=== PATIENT | female | born 1960 | race Caucasian/White ===

== ENCOUNTER 2018-12-22 21:19 | Emergency (ER) | payer OTHER ==
[2018-12-22 21:28] VITALS: TEMP 98.9
[2018-12-22] MEDS ORDERED: SODIUM CHLORIDE 0.9% 1,000 ML IV STA (22:16)
[2018-12-22] MEDS ORDERED: MORPHINE SULFATE 4 MG/ML SYRINGE IV STA (22:16)
[2018-12-22] MEDS ORDERED: ONDANSETRON 4 MG/2 ML VIAL IVP STA (22:16)
[2018-12-22] MEDS ORDERED: IPRATROPIUM-ALBUTEROL 3 ML NEB INHALATION STA (22:19)
[2018-12-22 22:31] LABS: Basophils # (A) 0.1 k/uL (0-0.2); Basophils % (A) 1 %; Eosinophils # (A) 0.2 k/uL (0-0.7); Eosinophils % (A) 2 %; HCT 41.5 % (34.0-46.0); HGB 13.5 gm/dL (11.4-16.0); Lymphocytes # (A) 2.5 k/uL (1.0-4.8); Lymphocytes % (A) 24 %; MCH 29.7 pg (25.0-35.0); MCHC 32.6 g/dL (31.0-37.0); MCV 91.2 fL (80.0-100.0); Mean Platelet Volume 6.6; Monocytes # (A) 0.4 k/uL (0-1.0); Monocytes % (A) 4 %; Neutrophils # (A) 7.1 k/uL (1.3-7.7); Neutrophils % (A) 68 %; Platelet Count 249 k/uL (150-450); RBC 4.56 m/uL (3.80-5.40); RDW 14.3 % (11.5-15.5); WBC 10.4 k/uL (3.8-10.6)
[2018-12-22 22:38] LABS: ALT 40 U/L (9-52); AST 27 U/L (14-36); Albumin 4.1 g/dL (3.5-5.0); Alkaline Phosphatase 172 U/L (38-126); Amylase 55 U/L (30-110); Anion Gap 6 mmol/L; Blood Urea Nitrogen 11 mg/dL (7-17); Calcium 9.9 mg/dL (8.4-10.2); Carbon Dioxide 25 mmol/L (22-30); Chloride 100 mmol/L (98-107); Lipase 169 U/L (23-300); Potassium 4.6 mmol/L (3.5-5.1); Sodium 131 mmol/L (137-145); Total Bilirubin 0.6 mg/dL (0.2-1.3); Total Protein 6.8 g/dL (6.3-8.2)
--- NOTE | 2018-12-22 22:56 | XR ---
EXAMINATION TYPE: XR chest 2V DATE OF EXAM: 12/22/2018 COMPARISON: NONE HISTORY: Nausea and vomiting TECHNIQUE: Frontal and lateral views of the chest are obtained. FINDINGS: Heart and mediastinum are normal. Lungs are clear. Diaphragm is normal. There is thoracic dextroscoliosis. There are chest leads. IMPRESSION: No active cardiopulmonary disease. Normal heart.
--- NOTE | 2018-12-22 23:01 | XR ---
EXAMINATION TYPE: XR KUB DATE OF EXAM: 12/22/2018 COMPARISON: NONE HISTORY: Nausea and vomiting TECHNIQUE: 2 views FINDINGS: 2 views upright show no sign of intestinal obstruction or pneumoperitoneum. Fecal pattern i s normal. There is mild thoracolumbar levoscoliosis. There is stent in the mid abdomen. Lung bases ar e clear. There are no pathologic calcifications over the kidneys. IMPRESSION: Nonacute abdomen.
[2018-12-22 23:23] LABS: Glucose 517 mg/dL (74-99)
[2018-12-22 23:31] LABS: Glucose,Whole Blood 411 mg/dL (75-99)
[2018-12-23] MEDS ORDERED: INSULIN REGULAR 100 UNIT/ML VIAL SQ ONE (00:09)
[2018-12-23] MEDS ORDERED: INSULIN REGULAR 100 UNIT/ML VIAL IV ONE ×2 (00:09→01:58)
[2018-12-23] MEDS ORDERED: SODIUM CHLORIDE 0.9% 1,000 ML IV ONE (01:58)
--- NOTE | 2018-12-23 02:03 | ED ---
Abdominal Pain HPI - General Chief Complaint: Abdominal Pain Stated Complaint: CHEST PAIN Time Seen by Provider: 12/22/18 21:42 Source: patient Mode of arrival: ambulatory Limitations: no limitations - History of Present Illness Initial Comments: 58-year-old female patient with past medical history significant for CAD, diabetes mellitus, hypertension, with recent placement of a stent to her, bile duct presents to the emergency department today for evaluation of upper abdominal pain, nausea, vomiting, and diarrhea. Patient states she's been having symptoms for the last 4-5 days. States that she did call her surgeon at [facility] was concern for possible infection to the stent. Patient denies any fevers or chills. She denies any chest pain or shortness of breath. Denies any dizziness or weakness. Patient states she's been unable to eat or drink anything in the last several days. States she has also been out of her insulin for the last 3 days. She denies any hematuria, dysuria, urinary frequency, urinary urgency. Patient denies any recent rash, chest pain, numbness, tingling , dizziness, weakness, headache, visual changes, or any other complaints. - Related Data Home Medications Medication Instructions Recorded Confirmed traZODone HCL [Desyrel] 200 mg PO HS 09/15/16 12/22/18 ALPRAZolam [Xanax] 1 mg PO HS PRN 12/22/18 12/22/18 Levothyroxine Sodium [Synthroid] 75 mcg PO DAILY 12/22/18 12/22/18 Lisinopril [Zestril] 5 mg PO DAILY 12/22/18 12/22/18 Metoprolol Tartrate [Lopressor] 25 mg PO BID 12/22/18 12/22/18 rOPINIRole HCL [Requip] 4 mg PO HS 12/22/18 12/22/18 Allergies Allergy/AdvReac Type Severity Reaction Status Date / Time ketorolac tromethamine Allergy Rash/Hives Verified 12/22/18 22:21 [From Toradol] tramadol Allergy Rash/Hives Verified 12/22/18 22:21 Review of Systems ROS Statement: Those systems with pertinent positive or pertinent negative responses have been documented in the HPI. ROS Other: All systems not noted in ROS Statement are negative. Past Medical History Past Medical History: Coronary Artery Disease (CAD), Diabetes Mellitus, Hypertension Additional Past Medical History / Comment(s): hx alcoholism- last drink 9 mos. ago. History of Any Multi-Drug Resistant Organisms: None Reported Past Surgical History: Orthopedic Surgery Additional Past Surgical History / Comment(s): pancreatic stent. plates in bilateral feet. Past Psychological History: Anxiety, Depression Smoking Status: Current every day smoker Past Alcohol Use History: Abuse Past Drug Use History: None Reported General Exam Limitations: no limitations General appearance: alert, in no apparent distress, other (This is a well- developed, well-nourished adult female patient in mild distress related to pain. Vital signs upon presentation are temperature 98.9F, pulse 93, respirations 16, blood pressure 138/96, pulse ox 93% on room air.) Eye exam: Present: normal appearance, PERRL, EOMI. Absent: scleral icterus, conjunctival injection, periorbital swelling ENT exam: Present: normal exam, normal oropharynx, mucous membranes moist Respiratory exam: Present: normal lung sounds bilaterally. Absent: respiratory distress, wheezes, rales, rhonchi, stridor Cardiovascular Exam: Present: regular rate, normal rhythm, normal heart sounds. Absent: systolic murmur, diastolic murmur, rubs, gallop, clicks GI/Abdominal exam: Present: soft, tenderness (Midepigastric tenderness), normal bowel sounds. Absent: distended, guarding, rebound, rigid Neurological exam: Present: alert, oriented X3, CN II-XII intact Psychiatric exam: Present: normal affect, normal mood Skin exam: Present: warm, dry, intact, normal color. Absent: rash Course Vital Signs 12/22/18 12/22/18 12/22/18 21:21 21:22 21:30 Temperature 98.9 F Pulse Rate 93 94 83 Respiratory 16 15 12 Rate Blood Pressure 138/96 138/96 138/96 O2 Sat by Pulse 93 L 93 L 95 Oximetry 12/22/18 12/22/18 12/22/18 22:00 22:30 22:44 Temperature Pulse Rate 71 69 61 Respiratory 14 13 Rate Blood Pressure 122/81 124/86 O2 Sat by Pulse 97 95 Oximetry 12/22/18 12/22/18 12/22/18 22:51 23:00 23:28 Temperature Pulse Rate 63 97 72 Respiratory 35 H 22 Rate Blood Pressure 96/71 118/86 O2 Sat by Pulse 97 Oximetry 12/22/18 12/23/18 12/23/18 23:30 00:00 00:30 Temperature Pulse Rate 85 75 71 Respiratory 24 24 16 Rate Blood Pressure 118/86 O2 Sat by Pulse Oximetry 12/23/18 12/23/18 12/23/18 01:00 01:30 02:39 Temperature Pulse Rate 80 74 86 Respiratory 17 17 16 Rate Blood Pressure 103/69 O2 Sat by Pulse 96 Oximetry Medical Decision Making - Medical Decision Making 58 year-old female patient presented to the emergency department today for evaluation of upper abdominal pain, nausea, vomiting, diarrhea. Physical examination did reveal some mild midepigastric abdominal tenderness. Patient did recently have a exchange of her common bile duct stent. Labs reviewed and did reveal hyperglycemia with a blood sugar of 517. Patient's acetone positive however anion gap was 6 and CO2 was 25. We did give IV fluids and insulin here in the emergency department. We did repeat CMP and acetone, sugar has improved. Anion gap, Axid remained stable. She has not acetone negative. Upon reevaluation she is resting comfortably. She will be discharged home to follow-up with her primary care physician and her well services operator for further evaluation. Return parameters were discussed in detail. She verbalizes understanding and agrees with this plan. - Lab Data Result diagrams: 12/22/18 22:15 12/23/18 04:45 Lab Results 12/22/18 12/22/18 12/22/18 Range/Units 22:15 22:15 22:15 WBC 10.4 (3.8-10.6) k/uL RBC 4.56 (3.80-5.40) m/uL Hgb 13.5 (11.4-16.0) gm/dL Hct 41.5 (34.0-46.0) % MCV 91.2 (80.0-100.0) fL MCH 29.7 (25.0-35.0) pg MCHC 32.6 (31.0-37.0) g/dL RDW 14.3 (11.5-15.5) % Plt Count 249 (150-450) k/uL Neutrophils % 68 % Lymphocytes % 24 % Monocytes % 4 % Eosinophils % 2 % Basophils % 1 % Neutrophils # 7.1 (1.3-7.7) k/uL Lymphocytes # 2.5 (1.0-4.8) k/uL Monocytes # 0.4 (0-1.0) k/uL Eosinophils # 0.2 (0-0.7) k/uL Basophils # 0.1 (0-0.2) k/uL Sodium 131 L (137-145) mmol/L Potassium 4.6 (3.5-5.1) mmol/L Chloride 100 (98-107) mmol/L Carbon Dioxide 25 (22-30) mmol/L Anion Gap 6 mmol/L BUN 11 (7-17) mg/dL Creatinine 0.37 L (0.52-1.04) mg/dL Est GFR (CKD-EPI)AfAm >90 (>60 ml/min/1.73 sqM) Est GFR (CKD-EPI)NonAf >90 (>60 ml/min/1.73 sqM) Glucose 517 H* (74-99) mg/dL POC Glucose (mg/dL) (75-99) mg/dL POC Glu [employer] Technical Officer ID Calcium 9.9 (8.4-10.2) mg/dL Total Bilirubin 0.6 (0.2-1.3) mg/dL AST 27 (14-36) U/L ALT 40 (9-52) U/L Alkaline Phosphatase 172 H (38-126) U/L Total Protein 6.8 (6.3-8.2) g/dL Albumin 4.1 (3.5-5.0) g/dL Amylase 55 (30-110) U/L Lipase 169 (23-300) U/L Urine Color Urine Appearance (Clear) Urine pH (5.0-8.0) Ur Specific [place] (1.001-1.035) Urine Protein (Negative) Urine Glucose (UA) (Negative) Urine Ketones (Negative) Urine Blood (Negative) Urine Nitrite (Negative) Urine Bilirubin (Negative) Urine Urobilinogen (<2.0) mg/dL Ur Leukocyte Esterase (Negative) Acetone, Qual Positive (Negative) 12/22/18 12/23/18 12/23/18 Range/Units 23:28 01:55 03:44 WBC (3.8-10.6) k/uL RBC (3.80-5.40) m/uL Hgb (11.4-16.0) gm/dL Hct (34.0-46.0) % MCV (80.0-100.0) fL MCH (25.0-35.0) pg MCHC (31.0-37.0) g/dL RDW (11.5-15.5) % Plt Count (150-450) k/uL Neutrophils % % Lymphocytes % % Monocytes % % Eosinophils % % Basophils % % Neutrophils # (1.3-7.7) k/uL Lymphocytes # (1.0-4.8) k/uL Monocytes # (0-1.0) k/uL Eosinophils # (0-0.7) k/uL Basophils # (0-0.2) k/uL Sodium (137-145) mmol/L Potassium (3.5-5.1) mmol/L Chloride (98-107) mmol/L Carbon Dioxide (22-30) mmol/L Anion Gap mmol/L BUN (7-17) mg/dL Creatinine (0.52-1.04) mg/dL Est GFR (CKD-EPI)AfAm (>60 ml/min/1.73 sqM) Est GFR (CKD-EPI)NonAf (>60 ml/min/1.73 sqM) Glucose (74-99) mg/dL POC Glucose (mg/dL) 411 H 328 H (75-99) mg/dL POC Glu [employer] Technical Officer ID Lowell Sarmiento Taylor Calcium (8.4-10.2) mg/dL Total Bilirubin (0.2-1.3) mg/dL AST (14-36) U/L ALT (9-52) U/L Alkaline Phosphatase (38-126) U/L Total Protein (6.3-8.2) g/dL Albumin (3.5-5.0) g/dL Amylase (30-110) U/L Lipase (23-300) U/L Urine Color Light Yellow Urine Appearance Clear (Clear) Urine pH 6.0 (5.0-8.0) Ur Specific [place] 1.033 (1.001-1.035) Urine Protein Negative (Negative) Urine Glucose (UA) 4+ H (Negative) Urine Ketones Negative (Negative) Urine Blood Negative (Negative) Urine Nitrite Negative (Negative) Urine Bilirubin Negative (Negative) Urine Urobilinogen <2.0 (<2.0) mg/dL Ur Leukocyte Esterase Negative (Negative) Acetone, Qual (Negative) 12/23/18 12/23/18 Range/Units 04:02 04:45 WBC (3.8-10.6) k/uL RBC (3.80-5.40) m/uL Hgb (11.4-16.0) gm/dL Hct (34.0-46.0) % MCV (80.0-100.0) fL MCH (25.0-35.0) pg MCHC (31.0-37.0) g/dL RDW (11.5-15.5) % Plt Count (150-450) k/uL Neutrophils % % Lymphocytes % % Monocytes % % Eosinophils % % Basophils % % Neutrophils # (1.3-7.7) k/uL Lymphocytes # (1.0-4.8) k/uL Monocytes # (0-1.0) k/uL Eosinophils # (0-0.7) k/uL Basophils # (0-0.2) k/uL Sodium 138 (137-145) mmol/L Potassium 3.3 L (3.5-5.1) mmol/L Chloride 110 H (98-107) mmol/L Carbon Dioxide 24 (22-30) mmol/L Anion Gap 4 mmol/L BUN 10 (7-17) mg/dL Creatinine 0.41 L (0.52-1.04) mg/dL Est GFR (CKD-EPI)AfAm >90 (>60 ml/min/1.73 sqM) Est GFR (CKD-EPI)NonAf >90 (>60 ml/min/1.73 sqM) Glucose 147 H (74-99) mg/dL POC Glucose (mg/dL) 182 H (75-99) mg/dL POC Glu [employer] Technical Officer ID Marii Johnson Calcium 8.9 (8.4-10.2) mg/dL Total Bilirubin 0.4 (0.2-1.3) mg/dL AST 17 (14-36) U/L ALT 41 (9-52) U/L Alkaline Phosphatase 120 (38-126) U/L Total Protein 5.8 L (6.3-8.2) g/dL Albumin 3.3 L (3.5-5.0) g/dL Amylase (30-110) U/L Lipase (23-300) U/L Urine Color Urine Appearance (Clear) Urine pH (5.0-8.0) Ur Specific [place] (1.001-1.035) Urine Protein (Negative) Urine Glucose (UA) (Negative) Urine Ketones (Negative) Urine Blood (Negative) Urine Nitrite (Negative) Urine Bilirubin (Negative) Urine Urobilinogen (<2.0) mg/dL Ur Leukocyte Esterase (Negative) Acetone, Qual Negative (Negative) - EKG Data -: EKG Interpreted by Me EKG Comments: EKG obtained at 2125 shows normal sinus rhythm with ventricular rate of 87, OR interval 164, QRS duration 94, QT 372, QTc 447. No evidence of ST elevation or depression. - Radiology Data Radiology results: report reviewed, image reviewed Two-view x-ray of the chest is obtained. Heart mediastinum are normal. Lungs are clear. Diaphragm is normal. There is thoracic dextroscoliosis. There are chest leads. Impression by Dr. Stark shows no active cardiopulmonary disease. Normal heart. KUB x-ray of the abdomen is obtained. Report was reviewed in its entirety. Impression by Dr. Stark shows nonacute abdomen. Disposition Clinical Impression: Abdominal pain, Hyperglycemia Disposition: HOME SELF-CARE Condition: Good Instructions (If sedation given, give patient instructions): Abdominal Pain (ED ), Diabetic Hyperglycemia (ED) Additional Instructions: Contact your physician to obtain your insulin. Follow-up with your well services operator for further evaluation as soon as possible. Return to the emergency department immediately for any new, worsening, or concerning symptoms. Is patient prescribed a controlled substance at d/c from ED?: No Referrals: Nonstaff,Physician [Primary Care Provider] - 1-2 days Time of Disposition: 05:19
[2018-12-23 02:40] VITALS: RESP 16
[2018-12-23 03:13] LABS: Glucose,Whole Blood 328 mg/dL (75-99)
[2018-12-23 04:45] LABS: Glucose,Whole Blood 182 mg/dL (75-99)
[2018-12-23 04:46] LABS: Appearance,Urine Clear (Clear); Bilirubin,Urine Negative (Negative); Blood,Urine Negative (Negative); Color,Urine Light Yellow; Glucose,Urine (UA) 4+ (Negative); Ketones,Urine Negative (Negative); Leukocyte Esterase,Urine Negative (Negative); Nitrite,Urine Negative (Negative); Protein,Urine Negative (Negative); Specific Gravity,Urine 1.033 (1.001-1.035); Urobilinogen,Urine <2.0 mg/dL (<2.0)
[2018-12-23 05:05] LABS: ALT 41 U/L (9-52); AST 17 U/L (14-36); Albumin 3.3 g/dL (3.5-5.0); Alkaline Phosphatase 120 U/L (38-126); Anion Gap 4 mmol/L; Blood Urea Nitrogen 10 mg/dL (7-17); Calcium 8.9 mg/dL (8.4-10.2); Carbon Dioxide 24 mmol/L (22-30); Chloride 110 mmol/L (98-107); Glucose 147 mg/dL (74-99); Potassium 3.3 mmol/L (3.5-5.1); Sodium 138 mmol/L (137-145); Total Bilirubin 0.4 mg/dL (0.2-1.3); Total Protein 5.8 g/dL (6.3-8.2)
[2018-12-23] MEDS ORDERED: MORPHINE SULFATE 4 MG/ML SYRINGE IM STA (05:18)
[2018-12-23] MEDS ORDERED: POTASSIUM CHLORIDE ER 20 MEQ TAB.ER PO STA (05:18)
[2018-12-23 05:36] VITALS: BP 96/64; PULSE 81
== END 2018-12-23 05:43 | disposition home or self-care (01) ==
LOC: EC 21:19
DX: E11.65 Type 2 diabetes mellitus with hyperglycemia (principal); R10.10 Upper abdominal pain, unspecified; R19.7 Diarrhea, unspecified; I10 Essential (primary) hypertension; I25.10 Atherosclerotic heart disease of native coronary artery without angina pectoris; F32.9 Major depressive disorder, single episode, unspecified; F41.9 Anxiety disorder, unspecified; F17.200 Nicotine dependence, unspecified, uncomplicated; Z88.5 Allergy status to narcotic agent; Z88.6 Allergy status to analgesic agent; Z79.890 Hormone replacement therapy; Z79.899 Other long term (current) drug therapy; Z96.89 Presence of other specified functional implants
CPT/HCPCS: 36415 ×2; 94640; 80053 ×2; 82150; 82009 ×2; 83690; 85025; 81003; 71046; 74018; 99284; 96374; 96375; 96361 ×7; 96372; J2270 ×2; J2405

== ENCOUNTER 2019-01-29 12:39 | Emergency (ER) | payer OTHER ==
[2019-01-29 13:02] VITALS: RESP 18; TEMP 97.5
--- NOTE | 2019-01-29 13:15 | ED ---
URI HPI - General Chief Complaint: Upper Respiratory Infection Stated Complaint: Body aches, congestion Time Seen by Provider: 01/29/19 13:10 Source: patient Mode of arrival: ambulatory Limitations: no limitations - History of Present Illness Initial Comments: 59-year-old female with past medical history of diabetes, thyroid disorder presenting today for multiple complaints. Patient states that she has had congestion and cough. She denies increased sputum production. Patient states she is a smoker. In addition patient states she has thrush, she states she has had this in the past, denies HIV. Patient denies any cancer or immunotherapy. Patient states that she has not been taking her diabetes medication including insulin because she has not had a primary care provider over the past month. Patient states she has had increased frequency of urination. Patient denies fever, chills night sweats headache, neck stiffness, chest pain, dyspnea, dyspnea on exertion, wheeze. She states is all upper respiratory with mostly nasal congestion. Patient denies any hemoptysis. Patient states her throat is sore, she feels this is due to the thrush. Patient denies any ear pain. Patient denies any dysuria. Patient states she would like her anxiety med as well as all of her other medications as she has not had them in a month. Remaining review of systems negative upon arrival patient appears well with no other complaints. Patient appears nontoxic. Patient denies any recent back pain, abdominal pain, nausea or vomiting, numbness or tingling, dysuria or hematuria, constipation or diarrhea, headaches or visual changes, or any other complaints. - Related Data Home Medications Medication Instructions Recorded Confirmed traZODone HCL [Desyrel] 200 mg PO HS 09/15/16 01/29/19 Levothyroxine Sodium [Synthroid] 75 mcg PO DAILY 12/22/18 01/29/19 rOPINIRole HCL [Requip] 4 mg PO HS 12/22/18 01/29/19 ALPRAZolam [Xanax] 0.5 mg PO Q6HR PRN 01/29/19 01/29/19 INSULIN LISPRO (humaLOG) [humaLOG] 4 unit SQ TID 01/29/19 01/29/19 Insulin Detemir (Levemir) [Levemir] 20 units SQ DAILY 01/29/19 01/29/19 metFORMIN HCL [Glucophage] 500 mg PO DAILY 01/29/19 01/29/19 Previous Rx's Medication Instructions Recorded Albuterol Inhaler [Ventolin Hfa 1 - 2 puff INHALATION RT-Q6H PRN 01/29/19 Inhaler] 14 Days #1 inhaler Azithromycin [Zithromax Z-pack] 0 mg PO DIRECTED #6 tab 01/29/19 INSULIN LISPRO (HumaLOG) [HumaLOG] 4 units SQ ACHS 14 Days #2 vial 01/29/19 Levothyroxine Sodium [Euthyrox] 75 mcg PO DAILY 14 Days #14 tablet 01/29/19 Nystatin 100,000 Unit/ml Susp 5 ml PO QID 14 Days #1 bottle 01/29/19 [Mycostatin Oral Susp] metFORMIN HCL 500 mg PO DAILY 14 Days #14 tablet 01/29/19 Allergies Allergy/AdvReac Type Severity Reaction Status Date / Time ketorolac tromethamine Allergy Rash/Hives Verified 01/29/19 16:25 [From Toradol] tramadol Allergy Rash/Hives Verified 01/29/19 16:25 Review of Systems ROS Statement: Those systems with pertinent positive or pertinent negative responses have been documented in the HPI. ROS Other: All systems not noted in ROS Statement are negative. Past Medical History Past Medical History: Coronary Artery Disease (CAD), Diabetes Mellitus, Hypertension Additional Past Medical History / Comment(s): hx alcoholism- last drink 9 mos. ago. History of Any Multi-Drug Resistant Organisms: None Reported Past Surgical History: Hysterectomy, Orthopedic Surgery Additional Past Surgical History / Comment(s): pancreatic stent. plates in bilateral feet. Past Psychological History: Anxiety, Depression Smoking Status: Current every day smoker Past Alcohol Use History: None Reported Past Drug Use History: None Reported General Exam - General Exam Comments Initial Comments: General: The patient is awake and alert, in no distress, and does not appear acutely ill. Eye: Pupils are equal, round and reactive to light, extra-ocular movements are intact. No nystagmus. There is normal conjunctiva bilaterally. No signs of icterus. Ears, nose, mouth and throat: There are moist mucous membranes and no oral lesions. Nasal congestion. Oropharynx revealed white plaque, there is white plaques on tongue. Uvula midline. No anterior cervical lymphadenopathy. Tympanic membrane and external auditory canals within normal limits. Neck: The neck is supple, there is no tenderness or JVD. Cardiovascular: There is a regular rate and rhythm. No murmur, rub or gallop is appreciated. Respiratory: Lungs are clear to auscultation, respirations are non-labored, breath sounds are equal. No wheezes, stridor, rales. Mild rhonchi. No retraction or abdominal breathing. Gastrointestinal: Soft, non-distended, non-tender abdomen without masses or organomegaly noted. There is no rebound or guarding present. No CVA tenderness. Bowel sounds are unremarkable. Musculoskeletal: Normal ROM, no tenderness. Strength 5/5. Sensation intact. Radial pulses equal bilaterally 2+. Neurological: A&O x 3. CN II-XII intact, There are no obvious motor or sensory deficits. Coordination appears grossly intact. Speech is normal. Skin: Skin is warm and dry and no rashes or lesions are noted. Psychiatric: Cooperative, appropriate mood & affect, normal judgment. Limitations: no limitations Course Vital Signs 01/29/19 01/29/19 01/29/19 12:58 14:05 14:14 Temperature 97.5 F L Pulse Rate 86 72 80 Respiratory 18 Rate Blood Pressure 134/99 O2 Sat by Pulse 96 Oximetry 01/29/19 01/29/19 15:45 16:30 Temperature Pulse Rate 77 78 Respiratory 18 18 Rate Blood Pressure 109/75 96/67 O2 Sat by Pulse 92 L 95 Oximetry Medical Decision Making - Medical Decision Making 59-year-old female presents today for chief complaint of upper respiratory symptoms and increased urgency as well as medication refill. Patient blood glucose and it can elevated upon arrival. Patient given IV fluids as well as IV insulin. Improvement of blood glucose. Patient had no acetone or ketones in urine. No evidence of DKA anion gap within acceptable limits. Patient given refill for Humalog. Patient's chest x-ray revealed no acute abnormality. Patient given DuoNeb treatment as well as prescription for azithromycin given COPD history. Patient attempting to leave the emergency department prior to discharge. States she would like to go home, attempting to leave ER. Patient was given a prescription to treat thrush, as well as her thyroid medication. She discussed the case attending provider Dr. Long we feel patient is stable for discharge with outpatient follow-up. I did give patient information for a free & reduced cost clinic in the [place] area so she can receive outpatient man agement of chronic disease. Patient is agreeable to this plan and discharged. Patient aware of return parameters. Patient denies questions at this time. Patient was educated on smoking cessation. - Lab Data Result diagrams: 01/29/19 14:25 01/29/19 14:25 Lab Results 01/29/19 01/29/19 01/29/19 Range/Units 13:35 14:25 14:25 WBC 12.4 H (3.8-10.6) k/uL RBC 5.48 H (3.80-5.40) m/uL Hgb 15.9 (11.4-16.0) gm/dL Hct 49.9 H (34.0-46.0) % MCV 91.1 (80.0-100.0) fL MCH 29.0 (25.0-35.0) pg MCHC 31.8 (31.0-37.0) g/dL RDW 13.7 (11.5-15.5) % Plt Count 287 (150-450) k/uL Neutrophils % 72 % Lymphocytes % 22 % Monocytes % 3 % Eosinophils % 1 % Basophils % 1 % Neutrophils # 8.9 H (1.3-7.7) k/uL Lymphocytes # 2.7 (1.0-4.8) k/uL Monocytes # 0.4 (0-1.0) k/uL Eosinophils # 0.1 (0-0.7) k/uL Basophils # 0.1 (0-0.2) k/uL Sodium 131 L (137-145) mmol/L Potassium 4.6 (3.5-5.1) mmol/L Chloride 95 L (98-107) mmol/L Carbon Dioxide 26 (22-30) mmol/L Anion Gap 10 mmol/L BUN 8 (7-17) mg/dL Creatinine 0.41 L (0.52-1.04) mg/dL Est GFR (CKD-EPI)AfAm >90 (>60 ml/min/1.73 sqM) Est GFR (CKD-EPI)NonAf >90 (>60 ml/min/1.73 sqM) Glucose 582 H* (74-99) mg/dL POC Glucose (mg/dL) (75-99) mg/dL POC Glu Professor Of Kinesiology ID Calcium 10.3 H (8.4-10.2) mg/dL Total Bilirubin 0.6 (0.2-1.3) mg/dL AST 41 H (14-36) U/L ALT 80 H (9-52) U/L Alkaline Phosphatase 346 H (38-126) U/L Total Protein 7.8 (6.3-8.2) g/dL Albumin 4.7 (3.5-5.0) g/dL Urine Color Urine Appearance (Clear) Urine pH (5.0-8.0) Ur Specific Goodwin (1.001-1.035) Urine Protein (Negative) Urine Glucose (UA) (Negative) Urine Ketones (Negative) Urine Blood (Negative) Urine Nitrite (Negative) Urine Bilirubin (Negative) Urine Urobilinogen (<2.0) mg/dL Ur Leukocyte Esterase (Negative) Acetone, Qual (Negative) Influenza Type A RNA Not Detected (Not Detectd) Influenza Type B (PCR) Not Detected (Not Detectd) 01/29/19 01/29/19 01/29/19 Range/Units 14:25 14:30 15:38 WBC (3.8-10.6) k/uL RBC (3.80-5.40) m/uL Hgb (11.4-16.0) gm/dL Hct (34.0-46.0) % MCV (80.0-100.0) fL MCH (25.0-35.0) pg MCHC (31.0-37.0) g/dL RDW (11.5-15.5) % Plt Count (150-450) k/uL Neutrophils % % Lymphocytes % % Monocytes % % Eosinophils % % Basophils % % Neutrophils # (1.3-7.7) k/uL Lymphocytes # (1.0-4.8) k/uL Monocytes # (0-1.0) k/uL Eosinophils # (0-0.7) k/uL Basophils # (0-0.2) k/uL Sodium (137-145) mmol/L Potassium (3.5-5.1) mmol/L Chloride (98-107) mmol/L Carbon Dioxide (22-30) mmol/L Anion Gap mmol/L BUN (7-17) mg/dL Creatinine (0.52-1.04) mg/dL Est GFR (CKD-EPI)AfAm (>60 ml/min/1.73 sqM) Est GFR (CKD-EPI)NonAf (>60 ml/min/1.73 sqM) Glucose (74-99) mg/dL POC Glucose (mg/dL) 410 H (75-99) mg/dL POC Glu Professor Of Kinesiology Kathy Rodriguez Calcium (8.4-10.2) mg/dL Total Bilirubin (0.2-1.3) mg/dL AST (14-36) U/L ALT (9-52) U/L Alkaline Phosphatase (38-126) U/L Total Protein (6.3-8.2) g/dL Albumin (3.5-5.0) g/dL Urine Color Light Yellow Urine Appearance Clear (Clear) Urine pH 7.0 (5.0-8.0) Ur Specific Goodwin 1.027 (1.001-1.035) Urine Protein Negative (Negative) Urine Glucose (UA) 4+ H (Negative) Urine Ketones Negative (Negative) Urine Blood Negative (Negative) Urine Nitrite Negative (Negative) Urine Bilirubin Negative (Negative) Urine Urobilinogen <2.0 (<2.0) mg/dL Ur Leukocyte Esterase Negative (Negative) Acetone, Qual Negative (Negative) Influenza Type A RNA (Not Detectd) Influenza Type B (PCR) (Not Detectd) 01/29/19 Range/Units 16:31 WBC (3.8-10.6) k/uL RBC (3.80-5.40) m/uL Hgb (11.4-16.0) gm/dL Hct (34.0-46.0) % MCV (80.0-100.0) fL MCH (25.0-35.0) pg MCHC (31.0-37.0) g/dL RDW (11.5-15.5) % Plt Count (150-450) k/uL Neutrophils % % Lymphocytes % % Monocytes % % Eosinophils % % Basophils % % Neutrophils # (1.3-7.7) k/uL Lymphocytes # (1.0-4.8) k/uL Monocytes # (0-1.0) k/uL Eosinophils # (0-0.7) k/uL Basophils # (0-0.2) k/uL Sodium (137-145) mmol/L Potassium (3.5-5.1) mmol/L Chloride (98-107) mmol/L Carbon Dioxide (22-30) mmol/L Anion Gap mmol/L BUN (7-17) mg/dL Creatinine (0.52-1.04) mg/dL Est GFR (CKD-EPI)AfAm (>60 ml/min/1.73 sqM) Est GFR (CKD-EPI)NonAf (>60 ml/min/1.73 sqM) Glucose (74-99) mg/dL POC Glucose (mg/dL) 319 H (75-99) mg/dL POC Glu Professor Of Kinesiology ID Kathy Quezada Calcium (8.4-10.2) mg/dL Total Bilirubin (0.2-1.3) mg/dL AST (14-36) U/L ALT (9-52) U/L Alkaline Phosphatase (38-126) U/L Total Protein (6.3-8.2) g/dL Albumin (3.5-5.0) g/dL Urine Color Urine Appearance (Clear) Urine pH (5.0-8.0) Ur Specific Goodwin (1.001-1.035) Urine Protein (Negative) Urine Glucose (UA) (Negative) Urine Ketones (Negative) Urine Blood (Negative) Urine Nitrite (Negative) Urine Bilirubin (Negative) Urine Urobilinogen (<2.0) mg/dL Ur Leukocyte Esterase (Negative) Acetone, Qual (Negative) Influenza Type A RNA (Not Detectd) Influenza Type B (PCR) (Not Detectd) Disposition Clinical Impression: Bronchitis, Blood glucose elevated, Thrush Disposition: HOME SELF-CARE Condition: Good Instructions (If sedation given, give patient instructions): Acute Bronchitis (ED) Additional Instructions: Please use medication as discussed. [facility] the [facility] 1-2 days Please return to emergency room if the symptoms increase or worsen or for any other concerns. Prescriptions: Levothyroxine Sodium [Euthyrox] 75 mcg PO DAILY 14 Days #14 tablet INSULIN LISPRO (HumaLOG) [HumaLOG] 4 units SQ ACHS 14 Days #2 vial metFORMIN HCL 500 mg PO DAILY 14 Days #14 tablet Nystatin 100,000 Unit/ml Susp [Mycostatin Oral Susp] 5 ml PO QID 14 Days #1 bottle Albuterol Inhaler [Ventolin Hfa Inhaler] 1 - 2 puff INHALATION RT-Q6H PRN 14 Days #1 inhaler PRN Reason: Wheezing Azithromycin [Zithromax Z-pack] 0 mg PO DIRECTED #6 tab Is patient prescribed a controlled substance at d/c from ED?: No Referrals: Nonstaff,Physician [Primary Care Provider] - 1-2 days [facility] [NON-STAFF] - 1-2 days Time of Disposition: 17:14
[2019-01-29] MEDS ORDERED: IPRATROPIUM-ALBUTEROL 3 ML NEB INHALATION STA (13:41)
--- NOTE | 2019-01-29 13:55 | XR ---
EXAMINATION TYPE: XR chest 2V DATE OF EXAM: 01/29/2019 COMPARISON: Prior chest 12/22/2018 HISTORY: Cough and congestion, pain TECHNIQUE: Frontal and lateral views of the chest are obtained. FINDINGS: There is no focal air space opacity, pleural effusion, or pneumothorax seen. The cardiac silhouette size is within normal limits. Scoliotic curvature of the spine again noted. Postop ley es are noted to the distal right clavicle. Stent is noted within the abdomen. The osseous structures are intact. IMPRESSION: No acute cardiopulmonary process.
[2019-01-29] MEDS ORDERED: ALPRAZolam 0.5 MG TAB PO STA (14:16)
[2019-01-29 14:44] LABS: Basophils # (A) 0.1 k/uL (0-0.2); Basophils % (A) 1 %; Eosinophils # (A) 0.1 k/uL (0-0.7); Eosinophils % (A) 1 %; HCT 49.9 % (34.0-46.0); HGB 15.9 gm/dL (11.4-16.0); Lymphocytes # (A) 2.7 k/uL (1.0-4.8); Lymphocytes % (A) 22 %; MCHC 31.8 g/dL (31.0-37.0); MCV 91.1 fL (80.0-100.0); Mean Platelet Volume 7.2; Monocytes # (A) 0.4 k/uL (0-1.0); Monocytes % (A) 3 %; Neutrophils # (A) 8.9 k/uL (1.3-7.7); Neutrophils % (A) 72 %; Platelet Count 287 k/uL (150-450); RBC 5.48 m/uL (3.80-5.40); RDW 13.7 % (11.5-15.5); WBC 12.4 k/uL (3.8-10.6)
[2019-01-29 14:53] LABS: ALT 80 U/L (9-52); AST 41 U/L (14-36); Albumin 4.7 g/dL (3.5-5.0); Alkaline Phosphatase 346 U/L (38-126); Anion Gap 10 mmol/L; Blood Urea Nitrogen 8 mg/dL (7-17); Calcium 10.3 mg/dL (8.4-10.2); Carbon Dioxide 26 mmol/L (22-30); Chloride 95 mmol/L (98-107); Potassium 4.6 mmol/L (3.5-5.1); Sodium 131 mmol/L (137-145); Total Bilirubin 0.6 mg/dL (0.2-1.3); Total Protein 7.8 g/dL (6.3-8.2)
[2019-01-29 15:01] LABS: Glucose 582 mg/dL (74-99)
[2019-01-29] MEDS ORDERED: SODIUM CHLORIDE 0.9% 1,000 ML IV ONE ×2 (15:02→16:00)
[2019-01-29] MEDS ORDERED: INSULIN REGULAR 100 UNIT/ML VIAL IV ONE (15:04)
[2019-01-29 15:16] LABS: Appearance,Urine Clear (Clear); Bilirubin,Urine Negative (Negative); Blood,Urine Negative (Negative); Color,Urine Light Yellow; Glucose,Urine (UA) 4+ (Negative); Ketones,Urine Negative (Negative); Leukocyte Esterase,Urine Negative (Negative); Nitrite,Urine Negative (Negative); Protein,Urine Negative (Negative); Specific Gravity,Urine 1.027 (1.001-1.035); Urobilinogen,Urine <2.0 mg/dL (<2.0)
[2019-01-29 15:49] LABS: Glucose,Whole Blood 410 mg/dL (75-99)
[2019-01-29] MEDS ORDERED: NITROGLYCERIN SL TABS 0.4 MG TAB SUBLINGUAL PRN (16:16)
[2019-01-29 16:35] LABS: Glucose,Whole Blood 319 mg/dL (75-99)
[2019-01-29 16:36] VITALS: BP 96/67; PULSE 78
[2019-01-29] MEDS ORDERED: NITROGLYCERIN OINT 1 INCH/GM PACKET TOPICAL SCH (18:00)
[2019-01-30] MEDS ORDERED: ASPIRIN 325 MG TAB PO SCH (09:00)
== END 2019-01-29 17:30 | disposition home or self-care (01) ==
LOC: EC 12:39
DX: J40 Bronchitis, not specified as acute or chronic (principal); E11.9 Type 2 diabetes mellitus without complications; B37.9 Candidiasis, unspecified; I25.10 Atherosclerotic heart disease of native coronary artery without angina pectoris; I10 Essential (primary) hypertension; F32.9 Major depressive disorder, single episode, unspecified; F41.9 Anxiety disorder, unspecified; F17.200 Nicotine dependence, unspecified, uncomplicated; Z79.4 Long term (current) use of insulin; Z79.890 Hormone replacement therapy; Z79.899 Other long term (current) drug therapy; Z88.5 Allergy status to narcotic agent; Z88.6 Allergy status to analgesic agent
CPT/HCPCS: 36415; 71046; 80053; 81003; 82009; 85025; 87502; 94640; 96360; 96361; 99284

== ENCOUNTER 2019-02-11 01:55 | Emergency (ER) | payer OTHER ==
[2019-02-11] MEDS ORDERED: SODIUM CHLORIDE 0.9% 500 ML 500 ML IV STA (02:55)
[2019-02-11] MEDS ORDERED: chlordiazePOXIDE 25 MG CAP PO STA (03:00)
[2019-02-11 04:20] LABS: Basophils # (A) 0.1 k/uL (0-0.2); Basophils % (A) 1 %; Eosinophils # (A) 0.1 k/uL (0-0.7); Eosinophils % (A) 1 %; HCT 44.7 % (34.0-46.0); HGB 14.2 gm/dL (11.4-16.0); Lymphocytes % (A) 24 %; MCH 28.6 pg (25.0-35.0); MCHC 31.7 g/dL (31.0-37.0); MCV 90.3 fL (80.0-100.0); Mean Platelet Volume 7.6; Monocytes # (A) 0.5 k/uL (0-1.0); Monocytes % (A) 4 %; Neutrophils # (A) 8.6 k/uL (1.3-7.7); Neutrophils % (A) 68 %; Platelet Count 286 k/uL (150-450); RBC 4.95 m/uL (3.80-5.40); RDW 14.4 % (11.5-15.5); WBC 12.6 k/uL (3.8-10.6)
[2019-02-11 04:30] LABS: Alcohol 28 mg/dL; Anion Gap 14 mmol/L; Blood Urea Nitrogen 6 mg/dL (7-17); Calcium 9.4 mg/dL (8.4-10.2); Carbon Dioxide 19 mmol/L (22-30); Chloride 100 mmol/L (98-107); Glucose 398 mg/dL (74-99); Potassium 4.2 mmol/L (3.5-5.1); Sodium 133 mmol/L (137-145)
[2019-02-11] MEDS ORDERED: INSULIN REGULAR 100 UNIT/ML VIAL SQ STA (04:33)
--- NOTE | 2019-02-11 05:12 | ED ---
Alcohol HPI - General Chief Complaint: Alcohol Stated Complaint: Relapse Time Seen by Provider: 02/11/19 02:34 Source: patient Mode of arrival: ambulatory Limitations: no limitations - History of Present Illness Initial Comments: This patient is a 59-year-old woman who presents with complaint that she is feeling very anxious. Patient reports that she has history of previous alcohol abuse and had been off of alcohol for some time, and then ended up drinking last night. She states that she is now having a lot of anxiety. MD Complaint: alcohol intoxication Last Drink: just HERB GROWER -: hour(s) Recent Trauma: No Associated Symptoms: nausea Treatments Prior to Arrival: none Chronic Alcohol Use: No - Related Data Home Medications Medication Instructions Recorded Confirmed traZODone HCL [Desyrel] 200 mg PO HS 09/15/16 02/12/19 Levothyroxine Sodium [Synthroid] 75 mcg PO DAILY 12/22/18 02/12/19 rOPINIRole HCL [Requip] 4 mg PO HS 12/22/18 02/12/19 ALPRAZolam [Xanax] 0.5 mg PO Q6HR PRN 01/29/19 02/12/19 Insulin Detemir (Levemir) [Levemir] See Protocol SQ DAILY 01/29/19 02/12/19 INSULIN LISPRO (HumaLOG) [HumaLOG] See Protocol SQ ACHS 02/11/19 02/12/19 Lisinopril [Zestril] 10 mg PO DAILY 02/11/19 02/12/19 Previous Rx's Medication Instructions Recorded Albuterol Inhaler [Ventolin Hfa 1 - 2 puff INHALATION RT-Q6H PRN 01/29/19 Inhaler] 14 Days #1 inhaler metFORMIN HCL 500 mg PO DAILY 14 Days #14 tablet 01/29/19 Cephalexin [Keflex] 500 mg PO Q12HR 5 Days #10 cap 02/11/19 Nystatin 100,000 Unit/ml Susp 5 ml PO QID #150 ml 02/11/19 [Mycostatin Oral Susp] Allergies Allergy/AdvReac Type Severity Reaction Status Date / Time ketorolac tromethamine Allergy Rash/Hives Verified 02/11/19 16:33 [From Toradol] tramadol Allergy Rash/Hives Verified 02/11/19 16:33 Review of Systems ROS Statement: Those systems with pertinent positive or pertinent negative responses have been documented in the HPI. ROS Other: All systems not noted in ROS Statement are negative. Constitutional: Denies: fever, chills, weakness Eyes: Denies: vision change Respiratory: Denies: cough, dyspnea Cardiovascular: Denies: chest pain, palpitations, syncope Gastrointestinal: Reports: nausea. Denies: abdominal pain, vomiting, diarrhea Genitourinary: Denies: dysuria, hematuria Musculoskeletal: Denies: back pain Skin: Denies: rash Neurological: Denies: headache, weakness, numbness Past Medical History Past Medical History: Coronary Artery Disease (CAD), Diabetes Mellitus, Fibromyalgia, Hypertension, Osteoarthritis (OA) Additional Past Medical History / Comment(s): hx alcoholism- History of Any Multi-Drug Resistant Organisms: None Reported Past Surgical History: Hysterectomy, Orthopedic Surgery Additional Past Surgical History / Comment(s): pancreatic stent. plates in bilateral feet. Past Psychological History: Anxiety, Depression Smoking Status: Current every day smoker Past Alcohol Use History: Abuse, Daily, Heavy Past Drug Use History: None Reported General Exam Limitations: no limitations General appearance: alert, in no apparent distress, anxious, cachectic Head exam: Present: atraumatic, normocephalic Eye exam: Present: normal appearance ENT exam: Present: mucous membranes dry, other (Patient does have whitish patches to the pharynx consistent with thrush) Neck exam: Present: normal inspection Respiratory exam: Present: normal lung sounds bilaterally. Absent: respiratory distress, wheezes, rales, rhonchi, stridor Cardiovascular Exam: Present: regular rate, normal rhythm, normal heart sounds. Absent: systolic murmur, diastolic murmur, rubs, gallop GI/Abdominal exam: Present: soft. Absent: distended, tenderness, guarding, rebound, rigid, mass Extremities exam: Present: normal inspection, normal capillary refill. Absent: pedal edema, calf tenderness Neurological exam: Present: alert Skin exam: Present: warm, dry, intact, normal color. Absent: rash Course Vital Signs 02/11/19 02/11/19 01:57 06:19 Temperature 97.7 F 98.1 F Pulse Rate 57 L 81 Respiratory 16 20 Rate Blood Pressure 135/55 115/78 O2 Sat by Pulse 93 L 97 Oximetry Medical Decision Making - Lab Data Result diagrams: 02/11/19 03:55 03/23/19 03:55 Lab Results 02/11/19 02/11/19 02/11/19 Range/Units 03:55 03:55 05:22 WBC 12.6 H (3.8-10.6) k/uL RBC 4.95 (3.80-5.40) m/uL Hgb 14.2 (11.4-16.0) gm/dL Hct 44.7 (34.0-46.0) % MCV 90.3 (80.0-100.0) fL MCH 28.6 (25.0-35.0) pg MCHC 31.7 (31.0-37.0) g/dL RDW 14.4 (11.5-15.5) % Plt Count 286 (150-450) k/uL Neutrophils % 68 % Lymphocytes % 24 % Monocytes % 4 % Eosinophils % 1 % Basophils % 1 % Neutrophils # 8.6 H (1.3-7.7) k/uL Lymphocytes # 3.0 (1.0-4.8) k/uL Monocytes # 0.5 (0-1.0) k/uL Eosinophils # 0.1 (0-0.7) k/uL Basophils # 0.1 (0-0.2) k/uL Sodium 133 L (137-145) mmol/L Potassium 4.2 (3.5-5.1) mmol/L Chloride 100 (98-107) mmol/L Carbon Dioxide 19 L (22-30) mmol/L Anion Gap 14 mmol/L BUN 6 L (7-17) mg/dL Creatinine 0.30 L (0.52-1.04) mg/dL Est GFR (CKD-EPI)AfAm >90 (>60 ml/min/1.73 sqM) Est GFR (CKD-EPI)NonAf >90 (>60 ml/min/1.73 sqM) Glucose 398 H (74-99) mg/dL POC Glucose (mg/dL) 364 H (75-99) mg/dL POC Glu [employer] Developer ID Arft, Nacho Calcium 9.4 (8.4-10.2) mg/dL Serum Alcohol 28 mg/dL Disposition Clinical Impression: Thrush, Blood glucose elevated, Alcoholic intoxication Disposition: HOME SELF-CARE Condition: Fair Instructions (If sedation given, give patient instructions): Alcohol Intoxication (ED) Prescriptions: Nystatin 100,000 Unit/ml Susp [Mycostatin Oral Susp] 5 ml PO QID #150 ml Is patient prescribed a controlled substance at d/c from ED?: No Referrals: Nonstaff,Physician [Primary Care Provider] - 1-2 days
[2019-02-11] MEDS ORDERED: ONDANSETRON ODT 4 MG TAB PO STA (05:15)
[2019-02-11 05:25] LABS: Glucose,Whole Blood 364 mg/dL (75-99)
[2019-02-11 06:36] VITALS: BP 115/78; PULSE 81; RESP 20; TEMP 98.1
== END 2019-02-11 06:36 | disposition home or self-care (01) ==
LOC: EC 01:55
DX: F10.129 Alcohol abuse with intoxication, unspecified (principal); E11.65 Type 2 diabetes mellitus with hyperglycemia; B37.0 Candidal stomatitis; F41.9 Anxiety disorder, unspecified; M79.7 Fibromyalgia; F32.9 Major depressive disorder, single episode, unspecified; F17.200 Nicotine dependence, unspecified, uncomplicated; Z79.890 Hormone replacement therapy; Z79.4 Long term (current) use of insulin; Z79.899 Other long term (current) drug therapy; Z88.6 Allergy status to analgesic agent; Z88.5 Allergy status to narcotic agent; Z53.8 Procedure and treatment not carried out for other reasons
CPT/HCPCS: 36415; 80048; 80320; 85025; 99284

== ENCOUNTER 2019-02-11 23:49 | Inpatient (IN) | payer OTHER ==
--- NOTE | 2019-02-12 00:35 | ED ---
Psych HPI - General Chief Complaint: Psychiatric Symptoms Stated Complaint: Suicidal Time Seen by Provider: 02/12/19 00:32 Source: patient Mode of arrival: ambulatory - History of Present Illness Initial Comments: Rodrigo is a 59-year-old female with history of depression, anxiety and history of alcohol abuse for 2 months and has been living a 3/4 house here in [place]. Patient was kicked out of her home for drinking alcohol. He was seen and evaluated in the hospital last night, she returned earlier in the evening was evaluated by psychiatric services determined to be stable for discharge home she was placed in a usp for the night however patient continues to feel that she is unsafe and unstable home. Patient has been noncompliant with her home medication she reports that she goes to bed at night hoping to not wake up. She reports passive suicidal thoughts. She states she doesn't want to live anymore. Patient moved to [place] approximately 2 months ago to live in this to record her house. She though she does not have the social contact worker psychological support in this area that she had prior ot moving up here. - Related Data Home Medications Medication Instructions Recorded Confirmed traZODone HCL [Desyrel] 200 mg PO HS 09/15/16 02/12/19 Levothyroxine Sodium [Synthroid] 75 mcg PO DAILY 12/22/18 02/12/19 rOPINIRole HCL [Requip] 4 mg PO HS 12/22/18 02/12/19 ALPRAZolam [Xanax] 0.5 mg PO Q6HR PRN 01/29/19 02/12/19 Insulin Detemir (Levemir) [Levemir] See Protocol SQ DAILY 01/29/19 02/12/19 INSULIN LISPRO (HumaLOG) [HumaLOG] See Protocol SQ ACHS 02/11/19 02/12/19 Lisinopril [Zestril] 10 mg PO DAILY 02/11/19 02/12/19 Previous Rx's Medication Instructions Recorded Albuterol Inhaler [Ventolin Hfa 1 - 2 puff INHALATION RT-Q6H PRN 01/29/19 Inhaler] 14 Days #1 inhaler metFORMIN HCL 500 mg PO DAILY 14 Days #14 tablet 01/29/19 Cephalexin [Keflex] 500 mg PO Q12HR 5 Days #10 cap 02/11/19 Nystatin 100,000 Unit/ml Susp 5 ml PO QID #150 ml 02/11/19 [Mycostatin Oral Susp] Allergies Allergy/AdvReac Type Severity Reaction Status Date / Time ketorolac tromethamine Allergy Rash/Hives Verified 02/11/19 16:33 [From Toradol] tramadol Allergy Rash/Hives Verified 02/11/19 16:33 Review of Systems ROS Statement: Those systems with pertinent positive or pertinent negative responses have been documented in the HPI. ROS Other: All systems not noted in ROS Statement are negative. Past Medical History Past Medical History: Coronary Artery Disease (CAD), Diabetes Mellitus, Fibromyalgia, Hypertension, Osteoarthritis (OA) Additional Past Medical History / Comment(s): hx alcoholism- History of Any Multi-Drug Resistant Organisms: None Reported Past Surgical History: Hysterectomy, Orthopedic Surgery Additional Past Surgical History / Comment(s): pancreatic stent. plates in bilateral feet. Past Psychological History: Anxiety, Depression Smoking Status: Current every day smoker Past Alcohol Use History: Abuse, Daily, Heavy Past Drug Use History: None Reported - Past Family History Mother Family Medical History: Diabetes Mellitus General Exam - General Exam Comments Initial Comments: Physical Exam GENERAL: Very thin appearing, tearful female Appears older than stated age HENT: Normocephalic, Atraumatic. EYES: PERRL, EOMI PULMONARY: Unlabored respirations. CARDIOVASCULAR: RRR ABDOMEN: Non-distended Scaphoid SKIN: Skin is clear with no lesions or rashes and otherwise unremarkable. : Deferred NEUROLOGIC: Patient is alert and oriented x3. Moving all extremities spontaneously MUSCULOSKELETAL: Normal extremities with adequate strength and full range of motion. No lower extremity swelling or edema. No calf tenderness. PSYCHIATRIC: Depressed, passive suicidal thoughts, hopeless Limitations: no limitations Limitations: no limitations Course Vital Signs 02/12/19 02/12/19 00:22 06:24 Temperature 98.3 F 98.0 F Pulse Rate 83 78 Respiratory 18 18 Rate Blood Pressure 111/77 128/78 O2 Sat by Pulse 96 98 Oximetry Medical Decision Making - Medical Decision Making She was seen and evaluated patient was medically cleared for evaluation by EPS Given the patient is returned 3 times in 24 hours repeatedly asking for help I do feel that the patient warrants further consideration by psychiatric services for possible inpatient help. EPS nurse agrees that the patient likely needs to have some established psychiatric care in this area. We'll plan for admission is agreeable to admission and will sign herself in - Lab Data Lab Results 02/12/19 Range/Units 03:58 POC Glucose (mg/dL) 319 H (75-99) mg/dL POC Glu Sheet Roller Operator ID Mela Colvin Disposition Clinical Impression: Depression Disposition: TRANSFER TO PSYCH HOSP/UNIT Condition: Serious Is patient prescribed a controlled substance at d/c from ED?: No
[2019-02-12 04:02] LABS: Glucose,Whole Blood 319 mg/dL (75-99)
[2019-02-12] MEDS ORDERED: MAGNESIUM HYDROXIDE 2,400 MG/10 ML CUP PO PRN (06:11)
[2019-02-12] MEDS ORDERED: ACETAMINOPHEN TAB 325 MG TAB PO PRN (06:11)
[2019-02-12] MEDS ORDERED: ALBUTEROL INHALER 60 PUFF/8 GM INHALER INHALATION PRN (06:12)
[2019-02-12] MEDS: LEVOTHYROXINE 75 MCG TAB PO SCH (06:45)
[2019-02-12] MEDS: NICOTINE 21MG/24HR PATCH TRANSDERM SCH (06:45)
[2019-02-12 06:49] LABS: Glucose,Whole Blood 292 mg/dL (75-99)
[2019-02-12] MEDS ORDERED: INSULIN ASPART (NovoLOG) 100 UNIT/ML VIAL SQ SCH (07:30)
[2019-02-12] MEDS ORDERED: metFORMIN 500 MG TAB PO SCH (09:00)
[2019-02-12] MEDS: INSULIN ASPART (NovoLOG) 100 UNIT/ML VIAL SQ SCH ×4 (09:00→21:31)
[2019-02-12] MEDS: CEPHALEXIN 500 MG CAP PO SCH ×2 (09:03→21:33)
[2019-02-12] MEDS: LISINOPRIL 10 MG TAB PO SCH (09:03)
[2019-02-12 10:21] VITALS: BMI 16.1
[2019-02-12 12:34] LABS: Glucose,Whole Blood 234 mg/dL (75-99)
[2019-02-12] MEDS: LORazepam 1 MG TAB PO PRN (13:07)
[2019-02-12] MEDS ORDERED: ONDANSETRON 4 MG TAB PO PRN (13:31)
[2019-02-12] MEDS ORDERED: IBUPROFEN 600 MG TAB PO PRN (13:42)
--- NOTE | 2019-02-12 14:15 | P.HPIM ---
History of Present Illness H&P Date: 02/12/19 Chief Complaint: elevated blood sugars Patient is a 59-year-old female past medical history of a ball abuse, tobacco abuse, insulin-dependent diabetes, hypertension, arthritis, and fibromyalgia who was been admitted to the mental health unit secondary to suicidal ideation. Patient seen and examined. She reports that she has been noncompliant with her medications for approximately one month. She is unable to tell me what her Lantus, Humalog, and metformin doses were prior. She does state that she's been having a cough for 2 weeks that was productive but is now not. This is associated with a stuffy nose. It is improving. She complains of some nausea, denies any heartburn, abdominal pain, or constipation. She does report some intermittent diarrhea. She reports being tired all the time. She states she was sober for a couple of months and then fell off the wagon was subsequently kicked out of her house. She complains of pain all over secondary to her fibromyalgia. Offered Tylenol and Motrin however she states these do not help and she is requesting something stronger. I discussed with her needing to speak with his psychiatrist about these medications. She also states she smokes 3 packs daily and typically has to have 2 nicotine patches is 1 will not fight cravings. Reports a 15 pound weight loss over the last 2 months. Review of Systems Pertinent positives and negatives as discussed in HPI, a complete review of systems was performed and all other systems are negative. Past Medical History Past Medical History: Coronary Artery Disease (CAD), Diabetes Mellitus, Fibromyalgia, Hypertension, Osteoarthritis (OA) Additional Past Medical History / Comment(s): hx alcoholism, hpothyroidism, RLS History of Any Multi-Drug Resistant Organisms: None Reported Past Surgical History: Hysterectomy, Orthopedic Surgery Additional Past Surgical History / Comment(s): pancreatic stent placed 2 years ago she believes at [facility] due to pancreatic insufficiency. plates in bilateral feet. Past Psychological History: Anxiety, Depression Smoking Status: Current every day smoker Past Alcohol Use History: Abuse, Daily, Heavy Past Drug Use History: None Reported - Past Family History Mother Family Medical History: Diabetes Mellitus Medications and Allergies Home Medications Medication Instructions Recorded Confirmed Type traZODone HCL [Desyrel] 200 mg PO HS 09/15/16 02/12/19 History Levothyroxine Sodium [Synthroid] 75 mcg PO DAILY 12/22/18 02/12/19 History rOPINIRole HCL [Requip] 4 mg PO HS 12/22/18 02/12/19 History ALPRAZolam [Xanax] 0.5 mg PO Q6HR PRN 01/29/19 02/12/19 History Albuterol Inhaler [Ventolin Hfa 1 - 2 puff INHALATION RT-Q6H PRN 01/29/19 02/12/19 Rx Inhaler] 14 Days #1 inhaler Insulin Detemir (Levemir) [Levemir] See Protocol SQ DAILY 01/29/19 02/12/19 History metFORMIN HCL 500 mg PO DAILY 14 Days #14 tablet 01/29/19 02/12/19 Rx Cephalexin [Keflex] 500 mg PO Q12HR 5 Days #10 cap 02/11/19 02/12/19 Rx INSULIN LISPRO (HumaLOG) [HumaLOG] See Protocol SQ ACHS 02/11/19 02/12/19 History Lisinopril [Zestril] 10 mg PO DAILY 02/11/19 02/12/19 History Nystatin 100,000 Unit/ml Susp 5 ml PO QID #150 ml 02/11/19 02/12/19 Rx [Mycostatin Oral Susp] Allergies Allergy/AdvReac Type Severity Reaction Status Date / Time ketorolac tromethamine Allergy Rash/Hives Verified 02/11/19 16:33 [From Toradol] tramadol Allergy Rash/Hives Verified 02/11/19 16:33 Physical Exam Osteopathic Statement: *. No significant issues noted on an osteopathic structural exam other than those noted in the History and Physical/Consult. Vitals: Vital Signs Temp Pulse Pulse Resp BP BP Pulse Ox 02/12/19 07:02 97.8 F 72 16 131/90 95 02/12/19 06:24 98.0 F 78 18 128/78 98 02/12/19 00:22 98.3 F 83 18 111/77 96 Intake and Output 02/11/19 02/12/19 02/12/19 22:59 06:59 14:59 Other: Weight 42.638 kg 42.638 kg General: Cachetic, no distress, appears at stated age, temporal wasting Derm: no unusual rashes/lesions no unusual ecchymoses, warm, dry Head: atraumatic, normocephalic, symmetric Eyes: EOMI, no lid lag, anicteric sclera, pupils equal round reactive to light ENT: Nose and ears atraumatic, no thrush, no pharyngeal erythema Neck: No thyromegaly, no cervical lymphadenopathy, trachea midline, supple Mouth: no lip lesion, mucus membranes dry Cardiovascular: S1S2 reg, no murmur, positive posterior tibial pulse bilateral, no edema, capillary refill less than 2 seconds Lungs: CTA bilateral, no rhonchi, no rales , no accessory muscle use Abdominal: soft, nontender to palpation, no guarding, no appreciable organomegaly, normal bowel sounds Ext: no gross muscle atrophy, muscle strength 5 out of 5 in all 4 extremities grossly, no contractures, Neuro: CN II-XI grossly intact, light touch intact all 4 extremities, finger to nose within normal limits, Psych: Alert, oriented, anxious affect Results Labs: Abnormal Lab Results - Last 24 Hours (Table) 02/12/19 02/12/19 02/12/19 Range/Units 03:58 06:48 12:31 POC Glucose (mg/dL) 319 H 292 H 234 H (75-99) mg/dL Thrombosis Risk Factor Assmnt - DVT/VTE Prophylaxis DVT/VTE Prophylaxis: Low risk, early ambulation encouraged Assessment and Plan Assessment: DM 2 with hyperglycemia - Start levemir 10 untis tonight increased metfromin to twice daily, continue with sliding scale insulin -Patient will likely have difficulty with sliding scale be on her functional status. Would do best with fixed dose insulin on discharge. -Await hemoglobin A1c -Hold for discharge on metformin and Lantus only. Hypothyroidism -TSH within normal limits -Continue Synthroid therapy Fibromyalgia -Patient asking for stronger pain medications. Offered Tylenol and Motrin -Additional narcotics as per psychiatry Tobacco abuse -Patient smokes 3 packs per day -Continue with nicotine patch and nicotine gum Hypertension, controlled -Continue with lisinopril History of pancreatic stent with recent weight loss -We will need outpatient follow-up with [facility] -We will add referral to GI on discharge for further investigation Depression -Your psych management Thank you for allowing us to participate in the care of this patient. We will follow peripherally. Do not hesitate to contact us with questions. Someone can be reached from the [facility] hospitalist group at all hours of the day at [phone].
[2019-02-12] MEDS ORDERED: clonazePAM 0.5 MG TAB PO STA (16:32)
[2019-02-12] MEDS ORDERED: NICOTINE 7MG/24HR PATCH TRANSDERM STA (16:35)
--- NOTE | 2019-02-12 17:03 | P.HP ---
Psychiatric H&P - . History & Physical: Allergies Allergy/AdvReac Type Severity Reaction Status Date / Time ketorolac tromethamine Allergy Rash/Hives Verified 02/11/19 16:33 [From Toradol] tramadol Allergy Rash/Hives Verified 02/11/19 16:33 Vital Signs Temp 97.8 F 02/12/19 07:02 Pulse 72 02/12/19 07:02 Resp 16 02/12/19 07:02 BP 131/90 02/12/19 07:02 Pulse Ox 95 02/12/19 07:02 Intake & Output 02/11/19 02/12/19 02/12/19 18:59 06:59 18:59 Weight 42.638 kg 45 kg Laboratory Last Values POC Glucose (mg/dL) 234 mg/dL (75-99) H 02/12/19 12:31 POC Glu Soft Sugar Supervisor ID Alex Perez 02/12/19 12:31 TSH 2.860 mIU/L (0.465-4.680) 02/12/19 07:53 02/12/19 17:01 Chief complaint Tearful , depressed and asking for xanax. She says xanax works faster. History of presenting illness Patient reports she moved to the [facility] approximately "2 months" ago after living in the [facility]. She relayed that she moved here for our recovery program as she heard [facility] has a great recovery program. Pt. reports she enjoyed her life prior to living here. However, she suffered with severe alcoholism and has for several years on end. Pt. also admits to suffering with bulimia and anorexia for several years since approximately an adolescent. Pt. reports yesterday she relapsed on alcohol after being sober 2-3 months and as a result was kicked out of the 3/4 house. Pt. relayed that she ran out of her medications approximately 2 weeks ago and has not been managing her diabetes because she does not have syringes and "I am just giving up." Patient admits that she needs help for her mental health . She reports feeling hopeless, worthless and frustrated. She is tearful, demanding for xanax and two nicotine patches saying I know what works for me. She is uncooperative, irritable, frustrated, demanding xanax for anxiety and wanting to go to [place] for alcoholism. She reports drinking fifth of alcohol per day. Past psychiatric history One psychiatric hospitalization several years ago for depression, says her was diagnosed with MS and was placed in half-way at that time. Reports being diagnosed with depression and anxiety. She reports getting seroquel through her primary care physician which she takes for sleep. She claims to have stopped taking all her medications one month ago Substance use history severe alcohol ism for "as long as I can remember." Pt. reports she relapsed day before yesterday on a fifth of alcohol after being sober for 2-3 months. Pt. denies all other drug use. UDS + Benzos. Reports smoking three packs of cigarettes per day Has been to several rehab programs . Legal problems Denies Family psychiatric treatment history Denies Medical history Primary care doctor : Dr. Delvalle Hypothyroidism, RLS, Coronary Artery Disease (CAD), Diabetes Mellitus, Fibromyalgia, Hypertension, Osteoarthritis (OA) pancreatic stent placed 2 years ago she believes at [facility] due to pancreatic insufficiency. plates in bilateral feet. Allergies Torodol and tramadol Social history Born in [place], [place]. Raised by both parents. Denies history of abuse. Has associate college degree has two children. Unemployed gets spousal support. Mental status exam 59 Year old woman. She is irritable, agitated, demanding for xanax stating it works well her panic attacks. She reports feeling frustrated and wanting to go to [facility] for rehab treatment . She is also demanding for two patches of nicotine stating she smokes 3 packs of cigarettes per day. She says one patch is not doing a shit for her. She says she takes nicotine gum every hour in addition to two patches. She is tearful, stating she is diabetic and sort threateningly stated you dont want to lift me up from ground as I pass out due to hypoglycemia. She denies current auditory or visual hallucinations. She denies paranoid ideations. She denies current suicidal or homicidal ideations. She is alert and oriented x 4. Her insight and judgment are limited. Diagnosis Major depression recurrent severe Alcohol abuse Plan 59-year-old male admitted through emergency department with worsening depression and medication non compliance . Medicine consult for physical examination psychosocial evaluation. After discussing benefits and risks of medications he has agreed to take acamprosate for alcohol cravings. Will start her on acmprosate 333mg po tid. She is currently demanding for xanax for anxiety/panic attacks. Will prescribe klonopin 0.25mg po now and 0.5mg po qhs. She is very irritable and uncooperative with assessment and does not want to talk much unless she gets something for her anxiety. Antidepressant need to be determined/discussed when she is more cooperative Monitor for symptoms will receive milieu therapy group therapy individual therapy occupational therapy recreational therapy and medication education. Discharge with outpatient follow-up. Social work to assist with placement. Referral to out patient substance use program Treatment goals: Medication stabilization of depression Insight improvement and encourage treatment adherence and development of better coping skills
[2019-02-12] MEDS: NICOTINE POLACRILEX 2 MG GUM BUCCAL PRN ×2 (17:10→21:32)
[2019-02-12 17:18] LABS: Glucose,Whole Blood 381 mg/dL (75-99)
[2019-02-12] MEDS: metFORMIN 500 MG TAB PO SCH (17:42)
[2019-02-12 20:13] LABS: Glucose,Whole Blood 342 mg/dL (75-99)
[2019-02-12] MEDS ORDERED: clonazePAM 0.5 MG TAB PO SCH (21:00)
[2019-02-12] MEDS: INSULIN DETEMIR (LEVEMIR) 100 UNIT/ML SYR SQ SCH (21:31)
[2019-02-12] MEDS: traZODone HCL 100 MG TAB PO SCH (21:32)
[2019-02-12] MEDS: ACAMPROSATE CALCIUM 333 MG TABLET.DR PO SCH (21:32)
[2019-02-12] MEDS: rOPINIRole HCL 4 MG TABLET PO SCH (21:34)
[2019-02-13] MEDS: LEVOTHYROXINE 75 MCG TAB PO SCH (06:15)
[2019-02-13 06:21] LABS: Glucose,Whole Blood 191 mg/dL (75-99)
[2019-02-13] MEDS: INSULIN ASPART (NovoLOG) 100 UNIT/ML VIAL SQ SCH ×4 (08:14→20:13)
[2019-02-13] MEDS: metFORMIN 500 MG TAB PO SCH ×2 (08:17→17:54)
[2019-02-13] MEDS: ACAMPROSATE CALCIUM 333 MG TABLET.DR PO SCH (09:04)
[2019-02-13] MEDS: LISINOPRIL 10 MG TAB PO SCH (09:06)
[2019-02-13] MEDS: NICOTINE 21MG/24HR PATCH TRANSDERM SCH (09:06)
[2019-02-13] MEDS: CEPHALEXIN 500 MG CAP PO SCH ×2 (09:06→21:33)
[2019-02-13] MEDS: NICOTINE 7MG/24HR PATCH TRANSDERM SCH (09:06)
[2019-02-13] MEDS: LORazepam 1 MG TAB PO PRN ×2 (09:08→16:30)
[2019-02-13] MEDS: NICOTINE POLACRILEX 2 MG GUM BUCCAL PRN ×2 (09:11→17:09)
[2019-02-13 12:33] LABS: Glucose,Whole Blood 359 mg/dL (75-99)
--- NOTE | 2019-02-13 15:57 | P.PN ---
Subjective Progress Note Date: 02/13/19 Principal diagnosis: Major depression recurrent severe Alcohol abuse severe Nicotine addiction severe chart reviewed and patient interviewed discussed in team and disposition plan with nursing staff and social work. Interviewed the patient in office after she took a long time to eat lunch since she has a hard time with poor dentition and swollen gumline. She denies any suicidal homicidal ideation but exhibited extremely anxious 10 out of 10 and depression 10 out of 10. She is been a uncontrollable drinker for number years and is down now to 95 pounds. She wants to go to a substance abuse treatment program to early recovery and help to get her medications stabilized before she leaves Objective - Vital Signs Vital signs: Vital Signs Temp 97.6 F 02/13/19 06:21 Pulse 72 02/13/19 06:21 Resp 14 02/13/19 06:21 BP 111/72 02/13/19 06:21 Pulse Ox 95 02/12/19 07:02 Intake & Output 02/12/19 02/13/19 02/13/19 18:59 06:59 18:59 Weight 45 kg - Labs Labs: Abnormal Lab Results - Last 24 Hours (Table) 02/12/19 02/12/19 02/13/19 Range/Units 17:15 20:11 06:20 POC Glucose (mg/dL) 381 H 342 H 191 H (75-99) mg/dL 02/13/19 Range/Units 12:31 POC Glucose (mg/dL) 359 H (75-99) mg/dL Assessment and Plan Assessment: History of presenting illness Patient reports she moved to the [facility] approximately "2 months" ago after living in the [facility]. She relayed that she moved here for our recovery program as she heard [facility] has a great recovery program. Pt. reports she enjoyed her life prior to living here. However, she suffered with severe alcoholism and has for several years on end. Pt. also admits to suffering with bulimia and anorexia for several years since approximately an adolescent. Pt. reports yesterday she relapsed on alcohol after being sober 2-3 months and as a result was kicked out of the 3/4 house. Pt. relayed that she ran out of her medications approximately 2 weeks ago and has not been managing her diabetes because she does not have syringes and "I am just giving up." Patient admits that she needs help for her mental health . She reports feeling hopeless, worthless and frustrated. She is tearful, demanding for xanax and two nicotine patches saying I know what works for me. She is uncooperative, irritable, frustrated, demanding xanax for anxiety and wanting to go to [place] for alcoholism. She reports drinking fifth of alcohol per day. Past psychiatric history One psychiatric hospitalization several years ago for depression, says her was diagnosed with MS and was placed in longterm at that time. Reports being diagnosed with depression and anxiety. She reports getting seroquel through her primary care physician which she takes for sleep. She claims to have stopped taking all her medications one month ago Substance use history severe alcohol ism for "as long as I can remember." Pt. reports she relapsed day before yesterday on a fifth of alcohol after being sober for 2-3 months. Pt. denies all other drug use. UDS + Benzos. Reports smoking three packs of cigarettes per day Has been to several rehab programs . (1) Alcohol abuse Current Visit: Yes Status: Acute Code(s): F10.10 - ALCOHOL ABUSE, UNCOMPLICATED SNOMED Code(s): 92187561 (2) Mood disorder Current Visit: No Status: Acute Code(s): F39 - UNSPECIFIED MOOD [AFFECTIVE] DISORDER SNOMED Code(s): 34571202 Plan: reviewed her medications and discussed with the patient. Klonopin that he is twice a day for anxiety 0.5 mg. Scheduled her Zofran on a more regular basis for her nausea. Add venlafaxine 37.5 mg By mouth daily at bedtime for anxiety and depression and somatic complaints which include fibromyalgia-like symptomshich may be all related to her chronic alcoholism. Nicotine use disorder. She was also placed on Lamictal for mood stability 25 mg by mouth daily at bedtime and ReVia 50 mg for alcohol and discontinued Campral. Time with Patient: Greater than 30
[2019-02-13] MEDS: ONDANSETRON 4 MG TAB PO SCH (16:27)
[2019-02-13 17:52] LABS: Glucose,Whole Blood 350 mg/dL (75-99)
[2019-02-13] MEDS: MAG HYDROX/AL HYDROX/SIMETH 30 ML CUP PO PRN (19:21)
[2019-02-13 20:07] LABS: Glucose,Whole Blood 345 mg/dL (75-99)
[2019-02-13] MEDS: INSULIN DETEMIR (LEVEMIR) 100 UNIT/ML SYR SQ SCH (20:15)
[2019-02-13] MEDS ORDERED: VENLAFAXINE HCL ER 37.5 MG CAP PO SCH (21:00)
[2019-02-13] MEDS: rOPINIRole HCL 4 MG TABLET PO SCH (21:32)
[2019-02-13] MEDS: clonazePAM 0.5 MG TAB PO SCH (21:32)
[2019-02-13] MEDS: traZODone HCL 100 MG TAB PO SCH (21:33)
[2019-02-13] MEDS: lamoTRIgine 25 MG TAB PO SCH (21:33)
[2019-02-13] MEDS: NALTREXONE HCL 50 MG TAB PO SCH (21:34)
[2019-02-14] MEDS: LORazepam 1 MG TAB PO PRN ×2 (00:42→11:13)
[2019-02-14] MEDS: ONDANSETRON 4 MG TAB PO SCH ×3 (00:42→16:43)
[2019-02-14] MEDS: LEVOTHYROXINE 75 MCG TAB PO SCH (05:41)
[2019-02-14 05:59] LABS: Glucose,Whole Blood 270 mg/dL (75-99)
[2019-02-14] MEDS: INSULIN ASPART (NovoLOG) 100 UNIT/ML VIAL SQ SCH ×4 (07:52→21:18)
[2019-02-14] MEDS: metFORMIN 500 MG TAB PO SCH ×2 (08:12→17:51)
[2019-02-14] MEDS: LISINOPRIL 10 MG TAB PO SCH (08:13)
[2019-02-14] MEDS: CEPHALEXIN 500 MG CAP PO SCH ×2 (08:13→21:17)
[2019-02-14] MEDS: clonazePAM 0.5 MG TAB PO SCH ×2 (08:13→21:17)
[2019-02-14] MEDS: NICOTINE 21MG/24HR PATCH TRANSDERM SCH (10:54)
[2019-02-14] MEDS: NICOTINE 7MG/24HR PATCH TRANSDERM SCH (10:55)
[2019-02-14] MEDS: NICOTINE POLACRILEX 2 MG GUM BUCCAL PRN ×3 (11:29→19:53)
--- NOTE | 2019-02-14 11:33 | P.PN ---
Subjective Progress Note Date: 02/14/19 Principal diagnosis: Major depression recurrent severe Alcohol abuse severe Nicotine addiction severe chart reviewed and patient interviewed discussed in team and disposition plan with nursing staff and social work. Interviewed the patient in office after she took a long time to eat lunch since she has a hard time with poor dentition and swollen gumline. She denies any suicidal homicidal ideation but exhibited extremely anxious 10 out of 10 and depression 10 out of 10. She is been a uncontrollable drinker for number years and is down now to 95 pounds. She wants to go to a substance abuse treatment program to early recovery and help to get her medications stabilized before she leaves : chart reviewed and patient interviewed. Patients nicontine patch and gum, I said no. Objective - Vital Signs Vital signs: Vital Signs Temp 98.6 F 02/14/19 00:43 Pulse 85 02/14/19 00:43 Resp 14 02/14/19 00:43 BP 110/73 02/14/19 00:43 Pulse Ox 95 02/12/19 07:02 - Labs Labs: Abnormal Lab Results - Last 24 Hours (Table) 02/13/19 02/13/19 02/13/19 Range/Units 12:31 17:48 20:05 POC Glucose (mg/dL) 359 H 350 H 345 H (75-99) mg/dL 02/14/19 Range/Units 05:55 POC Glucose (mg/dL) 270 H (75-99) mg/dL Assessment and Plan Assessment: History of presenting illness Patient reports she moved to the [facility] approximately "2 months" ago after living in the [facility]. She relayed that she moved here for our recovery program as she heard [facility] has a great recovery program. Pt. reports she enjoyed her life prior to living here. However, she suffered with severe alcoholism and has for several years on end. Pt. also admits to suffering with bulimia and anorexia for several years since approximately an adolescent. Pt. reports yesterday she relapsed on alcohol after being sober 2-3 months and as a result was kicked out of the 3/4 house. Pt. relayed that she ran out of her medications approximately 2 weeks ago and has not been managing her diabetes because she does not have syringes and "I am just giving up." Patient admits that she needs help for her mental health . She reports feeling hopeless, worthless and frustrated. She is tearful, demanding for xanax and two nicotine patches saying I know what works for me. She is uncooperative, irritable, frustrated, demanding xanax for anxiety and wanting to go to [place] for alcoholism. She reports drinking fifth of alcohol per day. Past psychiatric history One psychiatric hospitalization several years ago for depression, says her was diagnosed with MS and was placed in long term at that time. Reports being diagnosed with depression and anxiety. She reports getting seroquel through her primary care physician which she takes for sleep. She claims to have stopped taking all her medications one month ago Substance use history severe alcohol ism for "as long as I can remember." Pt. reports she relapsed day before yesterday on a fifth of alcohol after being sober for 2-3 months. Pt. denies all other drug use. UDS + Benzos. Reports smoking three packs of cigarettes per day Has been to several rehab programs . (1) Alcohol abuse Current Visit: Yes Status: Acute Code(s): F10.10 - ALCOHOL ABUSE, UNCOMPLICATED SNOMED Code(s): 30061613 (2) Mood disorder Current Visit: No Status: Acute Code(s): F39 - UNSPECIFIED MOOD [AFFECTIVE] DISORDER SNOMED Code(s): 32979621 Plan: reviewed her medications and discussed with the patient. Klonopin that he is twice a day for anxiety 0.5 mg. Scheduled her Zofran on a more regular basis for her nausea. Add venlafaxine 37.5 mg By mouth daily at bedtime for anxiety and depression and somatic complaints which include fibromyalgia-like symptomshich may be all related to her chronic alcoholism. Nicotine use disorder. She was also placed on Lamictal for mood stability 25 mg by mouth daily at bedtime and ReVia 50 mg for alcohol and discontinued Campral. 02/14/2019: maybe placement to [place] tomorrow; in crease effexor 75 mgXR Time with Patient: Less than 30
[2019-02-14 12:27] LABS: Glucose,Whole Blood 247 mg/dL (75-99)
[2019-02-14] MEDS: MAG HYDROX/AL HYDROX/SIMETH 30 ML CUP PO PRN ×2 (12:30→16:45)
[2019-02-14 17:31] LABS: Glucose,Whole Blood 377 mg/dL (75-99)
[2019-02-14 17:31] LABS: Glucose,Whole Blood 423 mg/dL (75-99)
[2019-02-14 20:06] LABS: Glucose,Whole Blood 345 mg/dL (75-99)
[2019-02-14] MEDS ORDERED: VENLAFAXINE HCL ER 75 MG CAP PO SCH (21:00)
[2019-02-14] MEDS ORDERED: INSULIN DETEMIR (LEVEMIR) 100 UNIT/ML SYR SQ SCH (21:00)
[2019-02-14] MEDS: NALTREXONE HCL 50 MG TAB PO SCH (21:19)
[2019-02-14] MEDS: traZODone HCL 100 MG TAB PO SCH (21:19)
[2019-02-14] MEDS: lamoTRIgine 25 MG TAB PO SCH (21:19)
[2019-02-14] MEDS: rOPINIRole HCL 4 MG TABLET PO SCH (21:19)
[2019-02-15] MEDS: ONDANSETRON 4 MG TAB PO SCH ×2 (02:28→07:50)
[2019-02-15] MEDS: LEVOTHYROXINE 75 MCG TAB PO SCH (05:57)
[2019-02-15 06:17] LABS: Glucose,Whole Blood 268 mg/dL (75-99)
[2019-02-15 07:11] VITALS: RESP 16; TEMP 99.1
[2019-02-15] MEDS: clonazePAM 0.5 MG TAB PO SCH (07:59)
[2019-02-15] MEDS: INSULIN ASPART (NovoLOG) 100 UNIT/ML VIAL SQ SCH ×2 (08:39→13:04)
[2019-02-15] MEDS: LISINOPRIL 10 MG TAB PO SCH (08:39)
[2019-02-15] MEDS: metFORMIN 500 MG TAB PO SCH (08:39)
[2019-02-15] MEDS: CEPHALEXIN 500 MG CAP PO SCH (08:39)
[2019-02-15] MEDS: MAG HYDROX/AL HYDROX/SIMETH 30 ML CUP PO PRN (08:41)
[2019-02-15] MEDS: NICOTINE POLACRILEX 2 MG GUM BUCCAL PRN ×2 (08:42→12:35)
--- NOTE | 2019-02-15 10:18 | P.DS ---
Providers Date of admission: 02/12/19 06:05 Expected date of discharge: 02/15/19 Attending physician: Duong Krishnan DO Consults: 02/12/19 06:11 Consult Physician Routine Consulting Provider: Orion Coelho Consult Reason/Comments: Medical Management Do you want consulting provider notified?: Yes Primary care physician: Physician Nonstaff - Discharge Diagnosis(es) (1) Alcohol abuse Chief complaint Tearful , depressed and asking for xanax. She says xanax works faster. History of presenting illness Patient reports she moved to the [facility] approximately "2 months" ago [facility] She relayed that she moved here for our recovery program as she heard [facility] has a great recovery program. Pt. reports she enjoyed her life prior to living here. However, she suffered with severe alcoholism and has for several years on end. Pt. also admits to suffering with bulimia and anorexia for several years since approximately an adolescent. Pt. reports yesterday she relapsed on alcohol after being sober 2-3 months and as a result was kicked out of the [facility] house. Pt. relayed that she ran out of her medications approximately 2 weeks ago and has not been managing her diabetes because she does not have syringes and "I am just giving up." Patient admits that she needs help for her mental health . She reports feeling hopeless, worthless and frustrated. She is tearful, demanding for xanax and two nicotine patches saying I know what works for me. She is uncooperative, irritable, frustrated, demanding xanax for anxiety and wanting to go to [place] for alcoholism. She reports drinking fifth of alcohol per day. Past psychiatric history One psychiatric hospitalization several years ago for depression, says her was diagnosed with MS and was placed in care home at that time. Reports being diagnosed with depression and anxiety. She reports getting seroquel through her primary care physician which she takes for sleep. She claims to have stopped taking all her medications one month ago Substance use history severe alcohol ism for "as long as I can remember." Pt. reports she relapsed day before yesterday on a fifth of alcohol after being sober for 2-3 months. Pt. denies all other drug use. UDS + Benzos. Reports smoking three packs of cigarettes per day Has been to several rehab programs . Current Visit: Yes Status: Acute Priority: Medium (2) Mood disorder Current Visit: No Status: Acute Priority: Medium Hospital Course: Plan: reviewed her medications and discussed with the patient. Klonopin that he is twice a day for anxiety 0.5 mg. Scheduled her Zofran on a more regular basis for her nausea. Add venlafaxine 37.5 mg By mouth daily at bedtime for anxiety and depression and somatic complaints which include fibromyalgia-like symptomshich may be all related to her chronic alcoholism. Nicotine use disorder. She was also placed on Lamictal for mood stability 25 mg by mouth daily at bedtime and ReVia 50 mg for alcohol and discontinued Campral. 02/14/2019: maybe placement to [place] tomorrow; in [place] effexor 75 mgXR Mental status examination time of discharge: The patient presents alert, pleasant, and cooperative. There calmly seated without any agitated behavior. She her reports that [] mood is good. Affect is congruent and euthymic. [She] deny having any suicidal or homicidal ideation intent or plan. [She] denies any auditory or visual hallucinations. There is no evidence of any delusional thought content. [Her] thought process is linear and goal-directed. [Her] speech is fluent and nonpressured. [Her] memory and concentration is grossly intact for the purposes of this session. Patient Condition at Discharge: Stable Plan - Discharge Summary Discharge Rx Participant: Yes New Discharge Prescriptions: New Venlafaxine HCl ER [Effexor XR] 75 mg PO HS 30 Days #30 cap.er.24h lamoTRIgine [LaMICtal] 25 mg PO 2100 30 Days #30 tab Insulin Detemir (Levemir) [Levemir] 15 unit SQ HS syr Ibuprofen [Motrin] 600 mg PO TID PRN tab PRN Reason: Breakthrough Pain Nicotine Polacrilex [Nicorette] 2 mg BUCCAL Q2HR PRN 30 Days #120 gum PRN Reason: Nicotine Cravings INSULIN ASPART (NovoLOG) [NovoLOG (formulary)] 0 unit SQ ACHS vial Naltrexone HCl [Revia] 50 mg PO 2100 30 Days #30 tab Acetaminophen Tab [Tylenol] 650 mg PO Q4HR PRN tab PRN Reason: Pain/Discomfort Ondansetron [Zofran] 4 mg PO Q8HR tab Continue Levothyroxine Sodium [Synthroid] 75 mcg PO DAILY metFORMIN HCL 500 mg PO DAILY 14 Days #14 tablet Albuterol Inhaler [Ventolin Hfa Inhaler] 1 - 2 puff INHALATION RT-Q6H PRN 14 Days #1 inhaler PRN Reason: Wheezing Nystatin 100,000 Unit/ml Susp [Mycostatin Oral Susp] 5 ml PO QID #150 ml INSULIN LISPRO (HumaLOG) [humaLOG] See Protocol SQ ACHS Lisinopril [Zestril] 10 mg PO DAILY traZODone HCL [Desyrel] 200 mg PO HS 30 Days #60 tab Cephalexin [Keflex] 500 mg PO Q12HR 5 Days #10 cap rOPINIRole HCL [Requip] 4 mg PO HS 30 Days #30 tablet Discontinued Insulin Detemir (Levemir) [Levemir] See Protocol SQ DAILY ALPRAZolam [Xanax] 0.5 mg PO Q6HR PRN PRN Reason: Anxiety Discharge Medication List Levothyroxine Sodium [Synthroid] 75 mcg PO DAILY 12/22/18 [History] Albuterol Inhaler [Ventolin Hfa Inhaler] 1 - 2 puff INHALATION RT-Q6H PRN 14 Days #1 inhaler 01/29/19 [Rx] metFORMIN HCL 500 mg PO DAILY 14 Days #14 tablet 01/29/19 [Rx] INSULIN LISPRO (HumaLOG) [humaLOG] See Protocol SQ ACHS 02/11/19 [History] Lisinopril [Zestril] 10 mg PO DAILY 02/11/19 [History] Nystatin 100,000 Unit/ml Susp [Mycostatin Oral Susp] 5 ml PO QID #150 ml 02/11/19 [Rx] Acetaminophen Tab [Tylenol] 650 mg PO Q4HR PRN tab 02/15/19 [Rx] Cephalexin [Keflex] 500 mg PO Q12HR 5 Days #10 cap 02/15/19 [Rx] INSULIN ASPART (NovoLOG) [NovoLOG (formulary)] 0 unit SQ ACHS vial 02/15/19 [Rx] Ibuprofen [Motrin] 600 mg PO TID PRN tab 02/15/19 [Rx] Insulin Detemir (Levemir) [Levemir] 15 unit SQ HS syr 02/15/19 [Rx] Naltrexone HCl [Revia] 50 mg PO 2100 30 Days #30 tab 02/15/19 [Rx] Nicotine Polacrilex [Nicorette] 2 mg BUCCAL Q2HR PRN 30 Days #120 gum 02/15/19 [Rx] Ondansetron [Zofran] 4 mg PO Q8HR tab 02/15/19 [Rx] Venlafaxine HCl ER [Effexor XR] 75 mg PO HS 30 Days #30 cap.er.24h 02/15/19 [Rx] lamoTRIgine [LaMICtal] 25 mg PO 2100 30 Days #30 tab 02/15/19 [Rx] rOPINIRole HCL [Requip] 4 mg PO HS 30 Days #30 tablet 02/15/19 [Rx] traZODone HCL [Desyrel] 200 mg PO HS 30 Days #60 tab 02/15/19 [Rx] Follow up Appointment(s)/Referral(s): Nonstaff,Physician [Primary Care Provider] - 1-2 days Max Mari MD [STAFF PHYSICIAN] - 1 Week Discharge Disposition: OTHER INSTITUTION NOT DEFINED
[2019-02-15] MEDS: LORazepam 1 MG TAB PO PRN (10:29)
[2019-02-15 10:30] VITALS: BP 110/71; PULSE 78
[2019-02-16 12:34] LABS: Hemoglobin A1C 15.9
== END 2019-02-15 12:45 | DRG 885 ==
LOC: EC 23:49 → 3MHU 02-12 06:05
PROVIDERS: ADMIT Psychiatry & Neurology Psychiatry; ATTEND Psychiatry & Neurology Psychiatry
DX: F33.2 Major depressive disorder, recurrent severe without psychotic features (principal); R45.851 Suicidal ideations; Z68.1 Body mass index [BMI] 19.9 or less, adult; E03.9 Hypothyroidism, unspecified; E11.65 Type 2 diabetes mellitus with hyperglycemia; F10.20 Alcohol dependence, uncomplicated; F17.210 Nicotine dependence, cigarettes, uncomplicated; F41.0 Panic disorder [episodic paroxysmal anxiety]; G25.81 Restless legs syndrome; I10 Essential (primary) hypertension; I25.10 Atherosclerotic heart disease of native coronary artery without angina pectoris; M79.7 Fibromyalgia; Z79.4 Long term (current) use of insulin; Z79.890 Hormone replacement therapy; Z79.899 Other long term (current) drug therapy; Z83.3 Family history of diabetes mellitus; Z90.710 Acquired absence of both cervix and uterus; T38.3X6A Underdosing of insulin and oral hypoglycemic [antidiabetic] drugs, initial encounter; R63.0 Anorexia; Z88.5 Allergy status to narcotic agent; Z88.8 Allergy status to other drugs, medicaments and biological substances; R63.4 Abnormal weight loss; M19.90 Unspecified osteoarthritis, unspecified site
CPT/HCPCS: 36415; 83036; 84443; 94640; 99285